=== PATIENT | male | born 1960 | race Caucasian/White ===

== ENCOUNTER → 2021-03-31 | Outpatient (CLI) | payer MEDICARE ==
[~2021-03-31] MED LIST: PROHANCE 279.3MG/ML 15ML VIAL As Ordered ONE
--- NOTE | 2021-03-31 13:27 | REP ---
INDICATION: TROCHANTERIC BURSITIS, RIGHT HIP. COMPARISON: Comparison is made with MRI study of the right femur from 04 September 2020.. TECHNIQUE: Larger field of view T1 and fat sat T2 images of both hips in the coronal plane are acquired. In addition, smaller [id number] high-resolution T2 fat sat images of the right hip were acquired in all 3 planes. FINDINGS: There is a large area of abnormal signal intensity in the femoral head on the right consistent with avascular necrosis. This is unchanged in size or extent when compared with September 04, 2020 study. There is no evidence of femoral head flattening. There is a small amount of joint fluid bilaterally in the hips. No significant effusion is seen on either side. There is increased signal intensity in the substance of the acetabular labral cartilage on the right consistent with labral cartilage degeneration. No seamus tear. The right ligamentum teres is not well seen. No loose body is appreciated. Cortical and medullary bone signal intensity are normal in the proximal femur on the left. The bony pelvic ring is intact as visualized. No pelvic mass or adenopathy is seen. The hamstring tendon insertions are unremarkable. There is minimal T2 hyperintensity in the Liv trochanteric soft tissues bilaterally which may reflect mild Liv trochanteric tendinitis or bursitis. No seamus fluid collection. 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 No evidence of collapse or flattening. Intrasubstance degeneration signal in the base of the acetabular labral cartilage on the right. <Electronically signed by Osmin Clayton > 03/31/21 [id number]
== END ==
LOC: M RAD 11:40
PROVIDERS: ATTEND Physician Assistant
DX: M70.61 Trochanteric bursitis, right hip (principal)
CPT/HCPCS: 73723; A9576